=== PATIENT | male | born 1990 | race Caucasian/White ===

== ENCOUNTER 2021-04-29 12:08 | Emergency (ER) | payer OTHER ==
[~2021-04-29] VITALS: Ht 195.6 cm; Wt 136.0 kg
[2021-04-29] MEDS ORDERED: IBUP200C25 PO (12:29)
[2021-04-29] MEDS ORDERED: ACETAMINOPHEN TAB 650MG DOSE (2X325MG) PO ONE (14:35)
[2021-04-29 14:48] VITALS: BP 133/91
== END 2021-04-29 14:57 | disposition home or self-care (01) ==
LOC: M ED 12:08
DX: S16.1XXA Strain of muscle, fascia and tendon at neck level, initial encounter (principal); S09.90XA Unspecified injury of head, initial encounter; V49.40XA Driver injured in collision with unspecified motor vehicles in traffic accident, initial encounter; M89.9 Disorder of bone, unspecified